=== PATIENT | male | born 1995 | race Caucasian/White ===

== ENCOUNTER 2020-09-13 19:12 | Observation (INO) | payer SELFPAY ==
[2020-09-13] MEDS ORDERED: Ondansetron PF 4 MG/2 ML Vial ONE ×2 (19:35→21:43)
[2020-09-13] MEDS ORDERED: Morphine 4 MG/ML VIAL ONE ×2 (19:35→21:42)
[2020-09-13 19:55] LABS: #Lymphocytes 1.8 thou/uL (1.20-3.40); #Monocytes 0.9 thou/uL (0.11-0.59); %Basophils 0.2 % (0.0-1.0); %Eosinophils 0.2 % (0.0-10.0); %Lymphocytes 14.3 % (21.0-51.0); %Monocytes 6.7 % (0.0-10.0); %Neutrophils 78.5 % (42.0-75.0); Hemoglobin 16.7 g/dL (14.0-18.0); Mean Corpuscular HGB CONC 35.4 g/dL (32.0-36.0); Mean Corpuscular Hemoglobin 31.6 pg (27.0-31.0); Mean Corpuscular Volume 89.4 fL (78.0-98.0); Mean Platelet Volume 7.8 fL (7.4-10.4); Platelet Count 230 thou/uL (130-400); RBC Distribution Width 11.4 % (11.5-14.5); Red Blood Cell (RBC) Count 5.29 mill/uL (4.70-6.10); White Blood Cell (WBC) Count 12.7 thou/uL (4.8-10.8)
[2020-09-13 20:15] LABS: ALT (SGPT) 15 U/L (8-55); AST (SGOT) 16 U/L (5-34); Albumin 4.5 g/dL (3.5-5.0); Alkaline Phosphatase 55 U/L (40-110); Anion Gap 15 mmol/L (10-20); BUN (Urea Nitrogen) 9 mg/dL (8.9-20.6); Bilirubin, Total 1.4 mg/dL (0.2-1.2); Calc. Creatinine Clearance 0 mL/min (70-130); Calcium 9.5 mg/dL (7.8-10.44); Carbon Dioxide 26 mmol/L (22-29); Chloride 103 mmol/L (98-107); Globulin 3.1 g/dL (2.4-3.5); Glucose 105 mg/dL (70-105); Lipase 19 U/L (8-78); Potassium 3.7 mmol/L (3.5-5.1); Protein, Total 7.6 g/dL (6.0-8.3); Sodium 140 mmol/L (136-145)
[2020-09-13 20:38] LABS: Bilirubin Negative (Negative); Blood, Urine Negative (Negative); Clarity Clear (Clear); Glucose, Urine (Dipstick) Normal (Negative); Ketone, Urine Negative (Negative); Leukocyte Negative Leu/uL (Negative); Nitrite Negative (Negative); Protein, Urine (Dipstick) Negative (Neg-Trace); Urobilinogen Normal mg/dL (Less than 2)
[2020-09-13] MEDS ORDERED: Piperacillin/Tazobactam 3.375 GM VIAL ONE (21:54)
[2020-09-13] MEDS ORDERED: Sodium Chloride 0.9% 1,000 ML IV SCH (22:45)
[2020-09-13] MEDS ORDERED: Ondansetron PF 4 MG/2 ML Vial IVP PRN (22:45)
[2020-09-13] MEDS ORDERED: Ondansetron ODT 4 MG TAB SL PRN (22:45)
[2020-09-13 23:03] VITALS: BMI 26.9
[2020-09-14 03:05] LABS: SARS-CoV-2 NAA Rapid Test Not Detected (NotDetected)
[2020-09-14] MEDS ORDERED: Piperacillin/Tazobactam 3.375 GM in Sodium Chloride 0.9% 100 ML IVPB SCH ×2 (04:00→12:00)
[2020-09-14] MEDS ORDERED: Morphine 4 MG/ML VIAL SLOW IVP PRN (08:07)
[2020-09-14] MEDS: Morphine 4 MG/ML VIAL SLOW IVP PRN (09:28)
[2020-09-14] MEDS ORDERED: Ondansetron PF 4 MG/2 ML Vial IVP PRN ×2 (10:49→13:57)
[2020-09-14] MEDS: Sodium Chloride 0.9% 1,000 ML IV SCH ×2 (11:04→20:21)
[2020-09-14] MEDS ORDERED: Lidocaine 1% w/Epinephrine 1:100K 20 ML VIAL ONE (12:52)
[2020-09-14] MEDS ORDERED: Bupivacaine 0.25% HCL 30 ML VIAL ONE (12:52)
[2020-09-14] MEDS ORDERED: Famotidine/PF 20 mg/2ml Vial ONE (13:01)
[2020-09-14] MEDS ORDERED: SUGAMMADEX SODIUM 200 MG/2 ML VIAL ONE (13:01)
[2020-09-14] MEDS ORDERED: Fentanyl 100 MCG/2 ML VIAL ONE (13:01)
[2020-09-14] MEDS ORDERED: Piperacillin/Tazobactam 3.375 GM VIAL ONE (13:04)
[2020-09-14] MEDS ORDERED: Sodium Chloride 0.9% 100 ML ONE (13:06)
[2020-09-14] MEDS ORDERED: Dexamethasone 20 MG/5 ML VIAL ONE (13:15)
[2020-09-14] MEDS ORDERED: Succinylcholine 200 MG/10 ml SYRINGE FS ONE (13:15)
[2020-09-14] MEDS ORDERED: Rocuronium Bromide 10 MG/ML (10ML VIAL) ONE (13:15)
[2020-09-14] MEDS ORDERED: Ketorolac Tromethamine 30 MG/ML VIAL ONE ×2 (13:15→14:07)
[2020-09-14] MEDS ORDERED: Ondansetron PF 4 MG/2 ML Vial ONE (13:15)
[2020-09-14] MEDS ORDERED: Metoclopramide HCl 10 MG/2 ML VIAL ONE (13:15)
[2020-09-14] MEDS ORDERED: PROPOFOL 200 MG/20 ML VIAL ONE (13:15)
[2020-09-14] MEDS ORDERED: Lidocaine 1% PF 5 ML VIAL ONE (13:15)
[2020-09-14] MEDS ORDERED: Dextrose 5% in Water 1,000 ML IV PRN (13:57)
[2020-09-14] MEDS ORDERED: Promethazine HCl 25 MG/ML VIAL IM PRN ×2 (13:57→14:07)
[2020-09-14] MEDS ORDERED: Dextrose 50% Abboject 50 ML SYRINGE SLOW IVP PRN (13:57)
[2020-09-14] MEDS ORDERED: hydrALAZINE 20 MG/ML VIAL SLOW IVP PRN (13:57)
[2020-09-14] MEDS ORDERED: Meperidine HCl/PF 25 MG/ML VIAL ONE (13:59)
[2020-09-14] MEDS ORDERED: D5 1/2 NS w/20 mEq KCL 1,000 ML ONE (14:05)
[2020-09-14] MEDS ORDERED: Promethazine HCl 25 MG/ML VIAL SLOW IVP PRN (14:07)
[2020-09-14] MEDS ORDERED: Ondansetron HCl/PF 4 MG/2 ML Vial IVP PRN (14:07)
[2020-09-14] MEDS: D5 1/2 NS w/20 mEq KCL 1,000 ML IV SCH ×2 (14:50→23:26)
[2020-09-14] MEDS: Ketorolac Tromethamine 30 MG/ML VIAL IVP SCH ×2 (18:19→23:26)
[2020-09-14] MEDS: Famotidine 20 MG TAB PO SCH (20:20)
[2020-09-14] MEDS: Piperacillin/Tazobactam 3.375 GM in Sodium Chloride 0.9% 100 ML IVPB SCH (20:20)
[2020-09-14] MEDS: Famotidine/PF 20 mg/2ml Vial SLOW IVP SCH (20:21)
[2020-09-15] MEDS: Piperacillin/Tazobactam 3.375 GM in Sodium Chloride 0.9% 100 ML IVPB SCH ×2 (02:16→08:05)
[2020-09-15] MEDS: Morphine 4 MG/ML VIAL SLOW IVP PRN (02:33)
[2020-09-15] MEDS: Sodium Chloride 0.9% 1,000 ML IV SCH (06:03)
[2020-09-15] MEDS: Ketorolac Tromethamine 30 MG/ML VIAL IVP SCH ×2 (06:03→12:56)
[2020-09-15] MEDS: Famotidine 20 MG TAB PO SCH (08:05)
[2020-09-15] MEDS: Famotidine/PF 20 mg/2ml Vial SLOW IVP SCH (08:05)
[2020-09-15 11:41] VITALS: BP 114/70; TEMP 97.9
== END 2020-09-15 13:46 | disposition home or self-care (01) ==
LOC: ERS 19:12 → SURG B 20:44
PROVIDERS: ADMIT Surgery; ATTEND Surgery
PROC: 0DTJ4ZZ Resection of Appendix, Percutaneous Endoscopic Approach (ICD-10-PCS; principal; 2020-09-14)
DX: K35.80 Unspecified acute appendicitis (principal); J45.909 Unspecified asthma, uncomplicated; L40.9 Psoriasis, unspecified; Z20.822 Contact with and (suspected) exposure to COVID-19
CPT/HCPCS: 74177; 80053; 81003; 83690; 85025; 87086; 88304; 96365; 96375; 96376; G0378; J0690; J1100; J1885; J2175; J2270; J2405; J2543; J2704; J2765; J3010; J3480; J3490; S0020; S0028; U0002